=== PATIENT | female | born 1965 | race Caucasian/White ===

== ENCOUNTER 2018-07-15 09:17 | Inpatient (IN) | payer BC ==
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
[2018-07-15 10:06] LABS: PLATELET COUNT 387 10^3/uL (150-400)
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
[2018-07-15] MEDS ORDERED: MAGNESIUM HYDROXIDE 30 ML UDCUP PO PRN (14:24)
[2018-07-15] MEDS ORDERED: MAG HYDROX/AL HYDROX/SIMETH 30 ML UDCUP PO PRN (14:24)
--- NOTE | 2018-07-15 14:24 | ASMTTCLDSP ---
TLC Discharge Disposition Disposition: Answers: Admit Disposition Notes: Notes: Admit to [facility]. Discharge Concerns/Recommendations: Notes: In consultation with [facility] ED physician, Augustine Turpin MD, and on-call advanced psychiatric nurse practitioner, Luis Mcnally APN, both concurred that pt appears to meet 27-65 criteria requiring psychiatric hospitalization as pt appears to be at risk of harm to self due to a mental illness condition. Pt was read the Patient Rights and Responsibilities Statement on 07/15/18 at 12:00 hrs, original placed on chart, and was given photocopy of Rights. Pt signed the Patient Rights. Pt was given and signed the 3[facility] prohibited belongings list while in the ED. Was patient given the Answers: Yes Inpatient Behavioral Health Prohibited Belongings List while in the ED? For inpatient Luis Mcnally APN admission, the following psychiatrist agreed to accept patient for admission to Behavioral Health ([facility]): Type of Hold: Answers: M1/72-hour Hold Hold initiated by: Answers: ED Physician Date Signed: 07/15/2018 02:23 PM Electronically Signed By:Jesus Shultz
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
[2018-07-15] MEDS: ACETAMINOPHEN 325 MG TAB PO PRN (21:32)
[2018-07-16] MEDS: metFORMIN HCL 500 MG TAB PO SCH (08:17)
[2018-07-16] MEDS: buPROPion XL 150 MG TAB PO SCH (08:17)
[2018-07-16] MEDS: METOPROLOL SUCCINATE XR 50 MG TAB PO SCH (08:17)
[2018-07-16] MEDS: HYDROCHLOROTHIAZID PO SCH (08:18)
[2018-07-16] MEDS: PRISTIQ 100 MG PO SCH (08:18)
[2018-07-16] MEDS: TELMISARTAN PO SCH (08:18)
[2018-07-16] MEDS: Empagliflozin [Jardiance] 10 MG PO SCH (08:20)
[2018-07-16] MEDS: INSULIN DETEMIR 45 UNIT SQ SCH (08:21)
--- NOTE | 2018-07-16 08:47 | ASMTBHMTP ---
Master Treatment Plan Master Treatment Plan Answers: Depressed Mood with for: Suicidal Ideation Date: 07/16/2018 Diagnosis on Admission: Major depressive Disorder, recurrent, severe 296.33 (F33.2) Expected length of stay: 3-5 Reason for admission: Notes: I have a history of depression and for the past several weeks, Kayli been having persistent and intrusive suicidal thoughts and considered plan of taking an overdose of my sleeping pills Lunesta. My outpatient therapist has been recommending for me to seek inpatient hospitalization for the past couple of weeks. Ten days ago, she asked me to turn over my supply of Lunesta to her as part of a safety plan. Two years ago, in September 2016, I was in the PHP/IOP program at [facility] in [place] for 30 days. It helped for a short period of time but my symptoms returned. They didnt want to deal with my PTSD trauma and only wanted to focus on the present. Kayli heard concerns of the reputation at [facility], so I didnt want to go to either [facility] or [facility]. On Friday, I drove up to [place] to [facility]. They told me I didnt meet inpatient criteria and offered step down levels of care. I cant drive from [place] up to [place] several times a week because of my job, so I researched what hospitals [place] insurance and [facility] is in network, so I drove up this morning. I dont feel safe at home at all. My therapist has been recommending inpatient. I agree to contract for safety in a hospital setting and agree to talk to staff if having thoughts of wanting to act in a self-harmful way. I need help! Patient's stated presenting problems: Notes: "I was having SI". Patient's goals for treatment: Notes: Ct. would like to learn new coping skills to better handle depressive thoughts. "To find something else instead of wanting to kill myself". Patient's strengths: Notes: "I don't know". Identify supports outside of hospital: Notes: "My , kids, friends" Discharge criteria: Notes: Suicidal Ideation will resolve and ct. will have a plan to safely manage recurrent suicidal idaetion. Initial disposition plan/considerations: Notes: Ct. will return to baseline and participate in planning her discharge. Master Treatment Plan Required Signatures Psychiatrist signature: Answers: Psychiatrist: RN on-shift signature: Answers: RN: Patient signature: Answers: Patient: Date Signed: 07/16/2018 08:47 AM Electronically Signed By:Miracle Byers.PAINTER DECORATOR
--- NOTE | 2018-07-16 08:59 | ASMTCMCOM ---
CM Note CM Note Notes: CC met with ct. to develop MTP. Ct. was pleasant and cooperative. She denied SI this morning. She reported that when she is depressed she develop SI and an urge for cutting. No cutting episodes in recent months but ct. has long hx of cutting. Ct. is seeing a therapist Alanna Infante ([phone]) twice a week and is under the care of a psychiatrist at [facility]. She signed [facility] for both. Date Signed: 07/16/2018 08:58 AM Electronically Signed By:Miracle Byers.[facility]
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
[2018-07-16] MEDS: ACETAMINOPHEN 325 MG TAB PO PRN (13:01)
--- NOTE | 2018-07-17 07:54 | SOAPPROG ---
SOAP Progress Note Assessment/Plan: Assessment: Major Depressive Disorder, Severe, with anxious distress. PTSD. Improvement noted. (see subjective/objective note). Patient could benefit from continued inpatient hospitalization for crisis stabilization, safety, medication evaluation, and to establish safe discharge plan including follow-up appointments. Consider discharge next week if patient is stable and has a safe discharge plan. Plan: 1. Psychotropic medications: continue current medications 2. Review with patient informed consent and recommendations for psychotropic medication treatment listed below 3. Labs: no additional at this time 4. Therapy: continue milieu and group therapy 5. Further investigation including gathering information from patients relatives and review of past case records to inform treatment plan. 6. Safety/Wellness plan and follow-up outpatient appointments to be established prior to discharge. Next steps are for patient to meet with intensive care unit registered nurse to plan a safe discharge plan and establish outpatient services for ongoing treatment. 7. Confer with inpatient treatment team regarding treatment plan. 8. Psychosocial stressors addressed through family caseworker. 9. Legal status: M1 10. Consider discharge this week if patient is in stable condition, safe, and has a safe discharge plan. PSYCHOTROPIC MEDICATION TREATMENT INFORMED CONSENT and RECOMMENDATIONS: Review nature of condition, diagnosis, and prognosis. Review nature and purpose of psychotropic medication treatment. Review type of psychotropic medications being ordered. Review risk and benefits of psychotropic medication treatment. Review probable length of time patient will need to take medications. Review risk and benefits of not undergoing psychotropic medication treatment. Review alternative treatments to psychotropic medications. Review psychotropic medications contraindications, drug-drug interactions, side effects, and importance of reporting any side effects to a psychiatric provider or nurse during inpatient hospitalization, and upon discharge to patients psychiatric outpatient provider, primary care provider, or other health child care worker. Review importance of asking a nurse, psychiatric provider, or primary care provider any questions or problems concerning the psychotropic medications. Verify patient understands the information that has been provided, and understands, accepts, and agrees to psychotropic medications. Review patients safety plan and importance of patient to report to staff while hospitalized if patient is ever a danger to self/others, or unable to care for self, and upon discharge, the importance for patient to contact [place] [facility] or 1, or go to the nearest emergency room, if patient is ever a danger to self/others, or unable to care for self. Recommend that upon discharge patient establish medication management treatment with a psychiatric provider, establishes routine therapy appointments, and follow-up with primary care provider. Verify patient understands and agrees to these recommendations. 07/17/18 07:52 Subjective: Following up with patient for evaluation of mood and safety. Patient reports, "Still struggling. Yesterday I slept for about 4 hours during the day, and did not sleep well last night." Patient reports no side effects from current medications, and reports her preference is to continue current medications. Objective: Vital Signs Temp Pulse Resp BP Pulse Ox 36.9 C 83 16 99/62 L 92 07/17/18 06:00 07/17/18 06:00 07/17/18 06:00 07/17/18 06:00 07/17/18 06:00 MSE: The patient is a well-nourished female looking stated chronological age. Attire is appropriate dress is casual. Grooming status is appropriate. Ambulation is independent. Gait is normal and coordinated. Posture is normal. Eye contact is appropriate. Motor activity is appropriate with purposeful, organized, coordinated movements; with no involuntary movements. Attitude is cooperative. Patient appears attentive and relates well to this interviewer. Language production is spontaneous. R/R/V normal. Articulation is clear. Patient reports mood as depressed with congruent affect. Patients thought process is linear and logical with no signs of thought disorder. Patient does not report suicidal/homicidal thoughts, ideas, or plans. Patient denies auditory, visual hallucinations. Patient denies delusions. Patient does not appear to be attending to internal stimuli. Patients attention and concentration are fair. Patient is oriented to person, place, time. Patients insight is poor. Patients judgment is poor. - Time Spent With Patient Time Spent With Patient: 15 minutes, met with patient individually. - Pending Discharge Pending Discharge Within 24 Hours: No Pending Discharge Within 48 Hours: No ICD10 Worksheet Patient Problems: Problems Problem Status Onset Failure of outpatient treatment Acute Major depress dis, severe Acute PTSD (post-traumatic stress disorder) Acute Planning to commit suicide Acute
[2018-07-17] MEDS: buPROPion XL 150 MG TAB PO SCH (08:21)
[2018-07-17] MEDS: Empagliflozin [Jardiance] 10 MG PO SCH (08:22)
[2018-07-17] MEDS: metFORMIN HCL 500 MG TAB PO SCH (08:22)
[2018-07-17] MEDS: PRISTIQ 100 MG PO SCH (08:23)
[2018-07-17] MEDS: METOPROLOL SUCCINATE XR 50 MG TAB PO SCH (08:28)
[2018-07-17] MEDS: HYDROCHLOROTHIAZID PO SCH (08:29)
[2018-07-17] MEDS: TELMISARTAN PO SCH (08:29)
[2018-07-17] MEDS: INSULIN DETEMIR 45 UNIT SQ SCH (08:30)
[2018-07-17] MEDS ORDERED: LEVOTHYROXINE 150 MCG TAB PO SCH (09:00)
[2018-07-17] MEDS: LEVOTHYROXINE 75 MCG TAB PO SCH (09:58)
[2018-07-17] MEDS ORDERED: INSULIN LISPRO 100 UNIT/ML SC ONE (17:15)
[2018-07-18] MEDS: LEVOTHYROXINE 75 MCG TAB PO SCH (06:10)
[2018-07-18] MEDS: PRISTIQ 100 MG PO SCH (08:07)
[2018-07-18] MEDS: INSULIN DETEMIR 45 UNIT SQ SCH (08:07)
[2018-07-18] MEDS: TELMISARTAN PO SCH (08:07)
[2018-07-18] MEDS: HYDROCHLOROTHIAZID PO SCH (08:07)
[2018-07-18] MEDS: buPROPion XL 150 MG TAB PO SCH (08:08)
[2018-07-18] MEDS: METOPROLOL SUCCINATE XR 50 MG TAB PO SCH (08:08)
[2018-07-18] MEDS: Empagliflozin [Jardiance] 10 MG PO SCH (08:08)
[2018-07-18] MEDS: metFORMIN HCL 500 MG TAB PO SCH (08:08)
--- NOTE | 2018-07-18 16:05 | ASMTCMCOM ---
CM Note CM Note Notes: Pt. reports "hard day today" adding "thoughts are back" (thoughts of self harm). Pt. reports her sleep was "not better..... but still up quite a bit" adding the unit can be noisy. Pt. reports getting enough to eat and attending a few groups. Pt. reports no side effects from her current medications, but stated "dose not quite there yet". Pt. reports wanting to increase her Wellbutrin. Pt. reports SI, rating herself a 7/10 with just thoughts, no plan. Pt. reports AVH of "see images of trauma, hear voices from trauma", adding these are her past traumas. Pt. denied paranoia. Pt. reports working with a therapist twice a week on her trauma. Pt. reports when working on trauma she "dissaccociates" and "different ages of me come out". Pt. reports seeing her psychiatrist every 3 months, stating her next appointment is in August. Pt. reports she signed in voluntarily adding she is "not ready to go yet". Pt. presents as alert, slightly anxious, good eye contact, groomed and cooperative. Staff report pt. sleeping 8 hours and being medication compliant. Pt. has a standing appointment with her therapist on 07/23 @ 4:30pm. Date Signed: 07/18/2018 04:04 PM Electronically Signed By:Jeana Martinez.[email or web address],VP [employer],[facility]
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
[2018-07-19] MEDS: LEVOTHYROXINE 75 MCG TAB PO SCH ×2 (07:32→10:06)
[2018-07-19] MEDS: TELMISARTAN PO SCH (08:03)
[2018-07-19] MEDS: Empagliflozin [Jardiance] 10 MG PO SCH (08:03)
[2018-07-19] MEDS: HYDROCHLOROTHIAZID PO SCH (08:03)
[2018-07-19] MEDS: PRISTIQ 100 MG PO SCH (08:03)
[2018-07-19] MEDS: INSULIN DETEMIR 45 UNIT SQ SCH (08:04)
[2018-07-19] MEDS: METOPROLOL SUCCINATE XR 50 MG TAB PO SCH (08:04)
[2018-07-19] MEDS: buPROPion XL 150 MG TAB PO SCH (08:04)
[2018-07-19] MEDS: metFORMIN HCL 500 MG TAB PO SCH (08:17)
[2018-07-19] MEDS ORDERED: D50W 25 GM/50 ML SYR IVP PRN (09:10)
[2018-07-19] MEDS: INSULIN LISPRO 100 UNIT/ML SC SCH ×2 (12:05→18:00)
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
[2018-07-19] MEDS ORDERED: metFORMIN HCL 500 MG TAB PO SCH (21:00)
[2018-07-20] MEDS: INSULIN LISPRO 100 UNIT/ML SC SCH ×3 (08:00→17:06)
[2018-07-20] MEDS: METOPROLOL SUCCINATE XR 50 MG TAB PO SCH ×2 (08:05→08:18)
[2018-07-20] MEDS: metFORMIN HCL 500 MG TAB PO SCH ×2 (08:06→18:02)
[2018-07-20] MEDS: buPROPion XL 150 MG TAB PO SCH ×2 (08:06→08:25)
[2018-07-20] MEDS: PRISTIQ 100 MG PO SCH (08:07)
[2018-07-20] MEDS: Empagliflozin [Jardiance] 10 MG PO SCH (08:08)
--- NOTE | 2018-07-20 08:12 | SOAPPROG ---
SOAP Progress Note Assessment/Plan: Assessment: Major Depressive Disorder, Severe, with anxious distress. PTSD. Improvement noted. (see subjective/objective note). Patient could benefit from continued inpatient hospitalization for crisis stabilization, safety, medication evaluation, and to establish safe discharge plan including follow-up appointments. Consider discharge this week if patient is stable and has a safe discharge plan. Plan: 1. Psychotropic medications: Increase Wellbutrin XL to 300 mg po QD. 2. Review with patient informed consent and recommendations for psychotropic medication treatment listed below 3. Labs: no additional at this time 4. Therapy: continue milieu and group therapy 5. Further investigation including gathering information from patients relatives and review of past case records to inform treatment plan. 6. Safety/Wellness plan and follow-up outpatient appointments to be established prior to discharge. Next steps are for patient to meet with behavioral health care manager to plan a safe discharge plan and establish outpatient services for ongoing treatment. 7. Confer with inpatient treatment team regarding treatment plan. 8. Psychosocial stressors addressed through director of casework. 9. Legal status: voluntary 10. Consider discharge this week if patient is in stable condition, safe, and has a safe discharge plan. PSYCHOTROPIC MEDICATION TREATMENT INFORMED CONSENT and RECOMMENDATIONS: Review nature of condition, diagnosis, and prognosis. Review nature and purpose of psychotropic medication treatment. Review type of psychotropic medications being ordered. Review risk and benefits of psychotropic medication treatment. Review probable length of time patient will need to take medications. Review risk and benefits of not undergoing psychotropic medication treatment. Review alternative treatments to psychotropic medications. Review psychotropic medications contraindications, drug-drug interactions, side effects, and importance of reporting any side effects to a psychiatric provider or nurse during inpatient hospitalization, and upon discharge to patients psychiatric outpatient provider, primary care provider, or other health resident caregiver. Review importance of asking a nurse, psychiatric provider, or primary care provider any questions or problems concerning the psychotropic medications. Verify patient understands the information that has been provided, and understands, accepts, and agrees to psychotropic medications. Review patients safety plan and importance of patient to report to staff while hospitalized if patient is ever a danger to self/others, or unable to care for self, and upon discharge, the importance for patient to contact [place] [facility] or 1, or go to the nearest emergency room, if patient is ever a danger to self/others, or unable to care for self. Recommend that upon discharge patient establish medication management treatment with a psychiatric provider, establishes routine therapy appointments, and follow-up with primary care provider. Verify patient understands and agrees to these recommendations. 07/20/18 08:10 Subjective: Following up with patient for evaluation of mood and safety. Patient reports, "Still not feeling well. Hitting a wall every afternoon around 1." Patient reports no side effects from current medications, and reports her preference is to continue current medications. Patient agrees to increase Wellbutrin XL to 300 mg po QD. Objective: Vital Signs Temp Pulse Resp BP Pulse Ox 36.9 C 79 15 92/55 L 92 07/20/18 06:00 07/20/18 06:00 07/20/18 06:00 07/20/18 06:00 07/20/18 06:00 MD REPORT FROM WEEKEND: No SEs from meds. Claims she wouldnt be safe outside the hospital, but contracts for safety on unit. MSE: The patient is a well-nourished female looking stated chronological age. Attire is appropriate dress is casual. Grooming status is appropriate. Ambulation is independent. Gait is normal and coordinated. Posture is normal. Eye contact is appropriate. Motor activity is appropriate with purposeful, organized, coordinated movements; with no involuntary movements. Attitude is cooperative. Patient appears attentive and relates well to this interviewer. Language production is spontaneous. R/R/V normal. Articulation is clear. Patient reports mood as depressed with congruent affect. Patients thought process is linear and logical with no signs of thought disorder. Patient does not report suicidal/homicidal thoughts, ideas, or plans. Patient denies auditory, visual hallucinations. Patient denies delusions. Patient does not appear to be attending to internal stimuli. Patients attention and concentration are fair. Patient is oriented to person, place, time. Patients insight is poor. Patients judgment is poor. - Time Spent With Patient Time Spent With Patient: 15 minutes, met with patient individually. - Pending Discharge Pending Discharge Within 24 Hours: No Pending Discharge Within 48 Hours: No ICD10 Worksheet Patient Problems: Problems Problem Status Onset Failure of outpatient treatment Acute Major depress dis, severe Acute PTSD (post-traumatic stress disorder) Acute Planning to commit suicide Acute
[2018-07-20] MEDS: TELMISARTAN PO SCH (08:20)
[2018-07-20] MEDS: HYDROCHLOROTHIAZID PO SCH (08:20)
[2018-07-20] MEDS: INSULIN DETEMIR 45 UNIT SQ SCH (08:26)
[2018-07-20] MEDS: LEVOTHYROXINE 75 MCG TAB PO SCH (10:09)
--- NOTE | 2018-07-20 12:33 | ASMTCMCOM ---
CM Note CM Note Notes: Pt. reports feeling "tired". Pt. stated she "haven't slept well since being here", adding she does not sleep well regularly. Pt. reports getting enough to eat and attending groups. Pt. reports wanting her Wellbutrin increased. Pt. reports she is "still having thoughts. Thoughts of cutting." Pt. denied HI, AVH and paranoia. Pt. reports not having a plan to self harm or suicide while in the hospital. Pt. reports not having any many distractions while in the hospital. Pt. discussed how getting a break from her regular life has been helpful in some ways. Pt. stated she plans to see her therapist on . Pt. reports not being available next Friday or Friday to see her provider. Pt. reports she will "hit a wall around 1, 1:30pm" adding she does not have sustained energy. Pt. presents as alert, calm, slightly down, good eye contact, friendly, groomed, and cooperative. Staff report pt. sleeping 8 hours and being medication compliant. Per provider, he will increase pt's Wellbutrin. Pt. has an appointment with her therapist on 07/23 @ 4:30pm. CC to schedule follow up appointment with pt's prescriber. Date Signed: 07/20/2018 12:33 PM Electronically Signed By:Jeana Martinez.MAXWELL,JOB DEVELOPER,[facility]
[2018-07-20] MEDS: ACETAMINOPHEN 325 MG TAB PO PRN (20:11)
--- NOTE | 2018-07-21 07:44 | SOAPPROG ---
SOAP Progress Note Assessment/Plan: Assessment: Major Depressive Disorder, Severe, with anxious distress. PTSD. Improvement noted. (see subjective/objective note). Patient could benefit from continued inpatient hospitalization for crisis stabilization, safety, medication evaluation, and to establish safe discharge plan including follow-up appointments. Consider discharge this week if patient is stable and has a safe discharge plan. Plan: 1. Psychotropic medications: Continue current medications 2. Review with patient informed consent and recommendations for psychotropic medication treatment listed below 3. Labs: no additional at this time 4. Therapy: continue milieu and group therapy 5. Further investigation including gathering information from patients relatives and review of past case records to inform treatment plan. 6. Safety/Wellness plan and follow-up outpatient appointments to be established prior to discharge. Next steps are for patient to meet with healthcare account manager to plan a safe discharge plan and establish outpatient services for ongoing treatment. 7. Confer with inpatient treatment team regarding treatment plan. 8. Psychosocial stressors addressed through pillowcase cleaner. 9. Legal status: voluntary 10. Consider discharge this week if patient is in stable condition, safe, and has a safe discharge plan. PSYCHOTROPIC MEDICATION TREATMENT INFORMED CONSENT and RECOMMENDATIONS: Review nature of condition, diagnosis, and prognosis. Review nature and purpose of psychotropic medication treatment. Review type of psychotropic medications being ordered. Review risk and benefits of psychotropic medication treatment. Review probable length of time patient will need to take medications. Review risk and benefits of not undergoing psychotropic medication treatment. Review alternative treatments to psychotropic medications. Review psychotropic medications contraindications, drug-drug interactions, side effects, and importance of reporting any side effects to a psychiatric provider or nurse during inpatient hospitalization, and upon discharge to patients psychiatric outpatient provider, primary care provider, or other health critical care cns. Review importance of asking a nurse, psychiatric provider, or primary care provider any questions or problems concerning the psychotropic medications. Verify patient understands the information that has been provided, and understands, accepts, and agrees to psychotropic medications. Review patients safety plan and importance of patient to report to staff while hospitalized if patient is ever a danger to self/others, or unable to care for self, and upon discharge, the importance for patient to contact [place] [facility] or 1, or go to the nearest emergency room, if patient is ever a danger to self/others, or unable to care for self. Recommend that upon discharge patient establish medication management treatment with a psychiatric provider, establishes routine therapy appointments, and follow-up with primary care provider. Verify patient understands and agrees to these recommendations. 07/21/18 07:43 Subjective: Following up with patient for evaluation of mood and safety. Patient reports, "Yesterday did not go well. They had to take my water bottle away because I was thinking about using it to cut on my arms." Patient reports no side effects from current medications, and reports her preference is to continue current medications. Objective: Vital Signs Temp Pulse Resp BP Pulse Ox 36.8 C 82 149 H 112/61 95 07/21/18 06:00 07/21/18 06:00 07/21/18 06:00 07/21/18 06:00 07/21/18 06:00 MSE: The patient is a well-nourished female looking stated chronological age. Attire is appropriate dress is casual. Grooming status is appropriate. Ambulation is independent. Gait is normal and coordinated. Posture is normal. Eye contact is appropriate. Motor activity is appropriate with purposeful, organized, coordinated movements; with no involuntary movements. Attitude is cooperative. Patient appears attentive and relates well to this interviewer. Language production is spontaneous. R/R/V normal. Articulation is clear. Patient reports mood as depressed with congruent affect. Patients thought process is linear and logical with no signs of thought disorder. Patient does not report suicidal/homicidal thoughts, ideas, or plans. Patient denies self- injurious ideation. Patient denies auditory, visual hallucinations. Patient denies delusions. Patient does not appear to be attending to internal stimuli. Patients attention and concentration are fair. Patient is oriented to person , place, time. Patients insight is poor. Patients judgment is poor. - Time Spent With Patient Time Spent With Patient: 15 minutes, met with patient individually. - Pending Discharge Pending Discharge Within 24 Hours: No Pending Discharge Within 48 Hours: No ICD10 Worksheet Patient Problems: Problems Problem Status Onset Failure of outpatient treatment Acute Major depress dis, severe Acute PTSD (post-traumatic stress disorder) Acute Planning to commit suicide Acute
[2018-07-21] MEDS: INSULIN LISPRO 100 UNIT/ML SC SCH ×3 (08:13→17:27)
[2018-07-21] MEDS: buPROPion XL 150 MG TAB PO SCH (08:14)
[2018-07-21] MEDS: METOPROLOL SUCCINATE XR 50 MG TAB PO SCH (08:14)
[2018-07-21] MEDS: Empagliflozin [Jardiance] 10 MG PO SCH (08:15)
[2018-07-21] MEDS: TELMISARTAN PO SCH (08:15)
[2018-07-21] MEDS: PRISTIQ 100 MG PO SCH (08:15)
[2018-07-21] MEDS: HYDROCHLOROTHIAZID PO SCH (08:15)
[2018-07-21] MEDS: metFORMIN HCL 500 MG TAB PO SCH ×2 (08:15→17:37)
[2018-07-21] MEDS: INSULIN DETEMIR 45 UNIT SQ SCH (08:16)
[2018-07-21] MEDS: LEVOTHYROXINE 75 MCG TAB PO SCH (09:58)
[2018-07-21] MEDS: ACETAMINOPHEN 325 MG TAB PO PRN (13:50)
--- NOTE | 2018-07-21 15:25 | ASMTBHDC ---
Notes Note: Notes: CC schedule follow up appointments for pt. with her therapist on 07/23 @ 4:30pm, and with pt's psychiatrist on August 10 at 8:00am. Pt. also has a second follow up appointment on September 01, at 8:00am. Staff report pt. sleeping 8 hours and being medication compliant. Staff report pt having a headache today. Pt. rated her SI as a 7/10. Pt. reported yesterday she was having thoughts of cutting and gave staff her hospital mug to be safe. Staff provided pt. with word search books and coloring supplies to help distract. Per provider, pt. to discharge either Friday or . Date Signed: 07/21/2018 03:24 PM Electronically Signed By:[email or web address] [email or web address],SIGNAL WORKER,NCC
--- NOTE | 2018-07-22 08:02 | SOAPPROG ---
SOAP Progress Note Assessment/Plan: Assessment: Major Depressive Disorder, Severe, with anxious distress. PTSD. Improvement noted. (see subjective/objective note). Patient could benefit from continued inpatient hospitalization for crisis stabilization, safety, medication evaluation, and to establish safe discharge plan including follow-up appointments. Consider discharge this week if patient is stable and has a safe discharge plan. Plan: 1. Psychotropic medications: Continue current medications 2. Review with patient informed consent and recommendations for psychotropic medication treatment listed below 3. Labs: no additional at this time 4. Therapy: continue milieu and group therapy 5. Further investigation including gathering information from patients relatives and review of past case records to inform treatment plan. 6. Safety/Wellness plan and follow-up outpatient appointments to be established prior to discharge. Next steps are for patient to meet with manager wound care to plan a safe discharge plan and establish outpatient services for ongoing treatment. 7. Confer with inpatient treatment team regarding treatment plan. 8. Psychosocial stressors addressed through continuous pillowcase cutter. 9. Legal status: voluntary 10. Consider discharge this week if patient is in stable condition, safe, and has a safe discharge plan. PSYCHOTROPIC MEDICATION TREATMENT INFORMED CONSENT and RECOMMENDATIONS: Review nature of condition, diagnosis, and prognosis. Review nature and purpose of psychotropic medication treatment. Review type of psychotropic medications being ordered. Review risk and benefits of psychotropic medication treatment. Review probable length of time patient will need to take medications. Review risk and benefits of not undergoing psychotropic medication treatment. Review alternative treatments to psychotropic medications. Review psychotropic medications contraindications, drug-drug interactions, side effects, and importance of reporting any side effects to a psychiatric provider or nurse during inpatient hospitalization, and upon discharge to patients psychiatric outpatient provider, primary care provider, or other health critical care educator. Review importance of asking a nurse, psychiatric provider, or primary care provider any questions or problems concerning the psychotropic medications. Verify patient understands the information that has been provided, and understands, accepts, and agrees to psychotropic medications. Review patients safety plan and importance of patient to report to staff while hospitalized if patient is ever a danger to self/others, or unable to care for self, and upon discharge, the importance for patient to contact [facility] or 1, or go to the nearest emergency room, if patient is ever a danger to self/others, or unable to care for self. Recommend that upon discharge patient establish medication management treatment with a psychiatric provider, establishes routine therapy appointments, and follow-up with primary care provider. Verify patient understands and agrees to these recommendations. 07/22/18 08:02 Subjective: Following up with patient for evaluation of mood and safety. Patient reports, "Still not feeling well. No change since I came here. Still feel the same." Patient reports no side effects from current medications, and reports her preference is to continue current medications. Objective: Vital Signs Temp Pulse Resp BP Pulse Ox 36.5 C 83 14 103/59 L 96 07/22/18 06:00 07/22/18 06:00 07/22/18 06:00 07/22/18 06:00 07/22/18 06:00 MSE: The patient is a well-nourished female looking stated chronological age. Attire is appropriate dress is casual. Grooming status is appropriate. Ambulation is independent. Gait is normal and coordinated. Posture is normal. Eye contact is appropriate. Motor activity is appropriate with purposeful, organized, coordinated movements; with no involuntary movements. Attitude is cooperative. Patient appears attentive and relates well to this interviewer. Language production is spontaneous. R/R/V normal. Articulation is clear. Patient reports mood as depressed with congruent affect. Patients thought process is linear and logical with no signs of thought disorder. Patient does not report suicidal/homicidal thoughts, ideas, or plans. Patient denies self- injurious ideation. Patient denies auditory, visual hallucinations. Patient denies delusions. Patient does not appear to be attending to internal stimuli. Patients attention and concentration are fair. Patient is oriented to person , place, time. Patients insight is poor. Patients judgment is poor. - Time Spent With Patient Time Spent With Patient: 15 minutes, met with patient individually. - Pending Discharge Pending Discharge Within 24 Hours: No Pending Discharge Within 48 Hours: No ICD10 Worksheet Patient Problems: Problems Problem Status Onset Failure of outpatient treatment Acute Major depress dis, severe Acute PTSD (post-traumatic stress disorder) Acute Planning to commit suicide Acute
[2018-07-22] MEDS: buPROPion XL 150 MG TAB PO SCH (08:59)
[2018-07-22] MEDS: metFORMIN HCL 500 MG TAB PO SCH ×2 (08:59→17:20)
[2018-07-22] MEDS: PRISTIQ 100 MG PO SCH (09:00)
[2018-07-22] MEDS: Empagliflozin [Jardiance] 10 MG PO SCH (09:00)
[2018-07-22] MEDS: INSULIN DETEMIR 45 UNIT SQ SCH (09:02)
[2018-07-22] MEDS: METOPROLOL SUCCINATE XR 50 MG TAB PO SCH (09:07)
[2018-07-22] MEDS: HYDROCHLOROTHIAZID PO SCH (09:08)
[2018-07-22] MEDS: TELMISARTAN PO SCH (09:08)
[2018-07-22] MEDS: INSULIN LISPRO 100 UNIT/ML SC SCH ×3 (09:37→17:20)
[2018-07-22] MEDS: LEVOTHYROXINE 75 MCG TAB PO SCH (10:46)
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
[2018-07-23] MEDS: metFORMIN HCL 500 MG TAB PO SCH (08:58)
[2018-07-23] MEDS: buPROPion XL 150 MG TAB PO SCH (08:58)
[2018-07-23] MEDS: METOPROLOL SUCCINATE XR 50 MG TAB PO SCH (09:01)
[2018-07-23] MEDS: Empagliflozin [Jardiance] 10 MG PO SCH (09:05)
[2018-07-23] MEDS: HYDROCHLOROTHIAZID PO SCH (09:06)
[2018-07-23] MEDS: TELMISARTAN PO SCH (09:06)
[2018-07-23] MEDS: PRISTIQ 100 MG PO SCH (09:06)
[2018-07-23] MEDS: INSULIN DETEMIR 45 UNIT SQ SCH (09:07)
[2018-07-23 09:10] VITALS: BP 112/71
--- NOTE | 2018-07-23 09:13 | SOAPPROG ---
SOAP Progress Note Assessment/Plan: Assessment: Major Depressive Disorder, Severe, with anxious distress. PTSD. Improvement noted. (see subjective/objective note). Patient could benefit from continued inpatient hospitalization for crisis stabilization, safety, medication evaluation, and to establish safe discharge plan including follow-up appointments. Consider discharge next week if patient is stable and has a safe discharge plan. Plan: 1. Psychotropic medications: Continue current medications 2. Review with patient informed consent and recommendations for psychotropic medication treatment listed below 3. Labs: no additional at this time 4. Therapy: continue milieu and group therapy 5. Further investigation including gathering information from patients relatives and review of past case records to inform treatment plan. 6. Safety/Wellness plan and follow-up outpatient appointments to be established prior to discharge. Next steps are for patient to meet with acute care nurse practitioner to plan a safe discharge plan and establish outpatient services for ongoing treatment. 7. Confer with inpatient treatment team regarding treatment plan. 8. Psychosocial stressors addressed through shelter case manager. 9. Legal status: voluntary 10. Consider discharge this week if patient is in stable condition, safe, and has a safe discharge plan. PSYCHOTROPIC MEDICATION TREATMENT INFORMED CONSENT and RECOMMENDATIONS: Review nature of condition, diagnosis, and prognosis. Review nature and purpose of psychotropic medication treatment. Review type of psychotropic medications being ordered. Review risk and benefits of psychotropic medication treatment. Review probable length of time patient will need to take medications. Review risk and benefits of not undergoing psychotropic medication treatment. Review alternative treatments to psychotropic medications. Review psychotropic medications contraindications, drug-drug interactions, side effects, and importance of reporting any side effects to a psychiatric provider or nurse during inpatient hospitalization, and upon discharge to patients psychiatric outpatient provider, primary care provider, or other health child care counselor. Review importance of asking a nurse, psychiatric provider, or primary care provider any questions or problems concerning the psychotropic medications. Verify patient understands the information that has been provided, and understands, accepts, and agrees to psychotropic medications. Review patients safety plan and importance of patient to report to staff while hospitalized if patient is ever a danger to self/others, or unable to care for self, and upon discharge, the importance for patient to contact [facility] [place] [facility] or 1, or go to the nearest emergency room, if patient is ever a danger to self/others, or unable to care for self. Recommend that upon discharge patient establish medication management treatment with a psychiatric provider, establishes routine therapy appointments, and follow-up with primary care provider. Verify patient understands and agrees to these recommendations. 07/23/18 09:12 Subjective: Following up with patient for evaluation of mood and safety. Patient reports, "Feeling better, yesterday afternoon was better, but still feeling really tired in the afternoon." Patient reports no side effects from current medications, and reports her preference is to continue current medications. Objective: Vital Signs Temp Pulse Resp BP Pulse Ox 36.4 C 76 16 112/71 92 07/23/18 06:00 07/23/18 09:01 07/23/18 06:00 07/23/18 09:01 07/23/18 06:00 MSE: The patient is a well-nourished female looking stated chronological age. Attire is appropriate dress is casual. Grooming status is appropriate. Ambulation is independent. Gait is normal and coordinated. Posture is normal. Eye contact is appropriate. Motor activity is appropriate with purposeful, organized, coordinated movements; with no involuntary movements. Attitude is cooperative. Patient appears attentive and relates well to this interviewer. Language production is spontaneous. R/R/V normal. Articulation is clear. Patient reports mood as depressed with congruent affect. Patients thought process is linear and logical with no signs of thought disorder. Patient does not report suicidal/homicidal thoughts, ideas, or plans. Patient denies self- injurious ideation. Patient denies auditory, visual hallucinations. Patient denies delusions. Patient does not appear to be attending to internal stimuli. Patients attention and concentration are fair. Patient is oriented to person , place, time. Patients insight is poor. Patients judgment is poor. - Time Spent With Patient Time Spent With Patient: 15 minutes, met with patient individually. - Pending Discharge Pending Discharge Within 24 Hours: No Pending Discharge Within 48 Hours: No ICD10 Worksheet Patient Problems: Problems Problem Status Onset Failure of outpatient treatment Acute Major depress dis, severe Acute PTSD (post-traumatic stress disorder) Acute Planning to commit suicide Acute
[2018-07-23] MEDS: INSULIN LISPRO 100 UNIT/ML SC SCH ×2 (09:32→12:13)
[2018-07-23] MEDS: LEVOTHYROXINE 75 MCG TAB PO SCH (11:02)
--- NOTE | 2018-07-23 13:22 | ASMTBHDC ---
Notes Note: Notes: Pt. reports feeling "okay". Pt. stated she slept "on and off". Pt. reports possibly needing to increase her Wellbutrin Pt. reports thoughts of self harm today, rating herself a 5-6 out of 10, adding she has no plan on how to self harm. Pt. reports having short-term disability paperwork she needs to complete. Pt. reports still feeling fatigued in the afternoon around 1 to 1:30pm. Pt. denied HI, AVH and paranoia. Pt. later in the day stated she would like to discharge. Pt. reports missing her family, home and pet. Pt. stated she is able to get to her follow up appointment, adding she plans to call her therapist today about meeting tomorrow. Pt. reports being able to fill and take her medications as prescribed. Pt. expressed no concerns about discharging and stated she feels safe to leave. Pt. presents as alert, mostly calm, slightly anxious, good eye contact, friendly, and cooperative. Staff report pt. sleeping 7 hours and being medication complaint. Pt. has a follow up therapy appointment on 07/27 @ 4pm and an appointment with her prescriber on 08/10 @ 8am. Date Signed: 07/23/2018 01:22 PM Electronically Signed By:[email or web address],TUBE CLEANING OPERATOR,NCC
== END 2018-07-23 12:45 | disposition home or self-care (01) | DRG 885 ==
LOC: BBEH 13:40
PROVIDERS: ADMIT Registered Nurse; ATTEND Registered Nurse
DX: F33.3 Major depressive disorder, recurrent, severe with psychotic symptoms (principal); F43.10 Post-traumatic stress disorder, unspecified; E11.9 Type 2 diabetes mellitus without complications; E78.5 Hyperlipidemia, unspecified; E03.9 Hypothyroidism, unspecified; G47.33 Obstructive sleep apnea (adult) (pediatric); I10 Essential (primary) hypertension; Z79.84 Long term (current) use of oral hypoglycemic drugs
CPT/HCPCS: 80305; G0480; J1815

== ENCOUNTER 2018-08-09 15:34 | Inpatient (IN) | payer BC | END 2018-08-17 12:35 | disposition home or self-care (01) | LOC: BBEH 08-10 12:00 ==